=== PATIENT | female | born 1990 | race African-American/Black ===

== ENCOUNTER 2019-02-18 14:10 | Emergency (ER) | payer BC ==
[~2019-02-18] VITALS: Ht 167.6 cm; Wt 91.0 kg
[2019-02-18 19:52] VITALS: BP 118/67
== END 2019-02-18 19:55 | disposition home or self-care (01) ==
LOC: ER 14:10
DX: R10.2 Pelvic and perineal pain (principal)
CPT/HCPCS: 86694; 99283